=== PATIENT | female | born 1990 | race Caucasian/White ===

== ENCOUNTER 2019-08-17 10:26 | Observation (INO) ==
[2019-08-17 13:18] LABS: ABS Eosinophils 0.2 10^3/ul (0-0.6); ABS Lymphocytes 1.6 10^3/ul (1.0-4.8); ABS Monocytes 0.7 10^3/ul (0-0.8); Eosinophil % 1.9 %; Hematocrit 36 % (35-47); Hemoglobin 12.2 g/dL (12.0-16.0); Mean Corpuscular HGB Conc 34 g/dL (31-36); Mean Corpuscular Hemoglobin 29 pg (27-31); Mean Corpuscular Volume 86 fL (80-97); Mean Platelet Volume 8.4 fL (7.4-10.4); Platelet Count 335 10^3/uL (150-450); Red Cell Distribution Width 13 % (10-15)
[2019-08-17 13:31] LABS: Activated Partial Thrombo Time 27.9 seconds (26.0-38.0); INR 1.1 (0.82-1.09)
[2019-08-17 13:38] LABS: ALT 15 U/L (7-52); AST 14 U/L (13-39); Albumin 3.7 g/dL (3.2-5.2); Alkaline Phosphatase 98 U/L (34-104); Anion Gap 9 mmol/L (2-11); Blood Urea Nitrogen 11 mg/dL (6-24); C Reactive Protein 188.76 mg/L (<8.01); CO2 Carbon Dioxide 24 mmol/L (22-32); Calcium 9.1 mg/dL (8.6-10.3); Chloride 102 mmol/L (101-111); Creatine Kinase 36 U/L (10-223); EGFR African American 147.7 (>60); EGFR Non-African American 122.1 (>60); Globulin 3.7 g/dL (2-4); Glucose 97 mg/dL (70-100); Potassium 3.2 mmol/L (3.5-5.0); Sodium 135 mmol/L (135-145); Total Protein 7.4 g/dL (6.4-8.9)
[2019-08-17 13:39] LABS: CKMB ng/mL 8.9 ng/mL (0.6-6.3)
[2019-08-17 13:42] LABS: HCG Pregnancy < 0.60 mIU/mL
[2019-08-17 13:53] LABS: Troponin I 0.16 ng/mL (<0.03)
[2019-08-17] MEDS ORDERED: Iohexol 350 (CONTRAST) 500 ML MDV IV ONE ×3 (14:08→18:24)
[2019-08-17 15:09] LABS: Urine Appearance Cloudy; Urine Bilirubin Negative (Negative); Urine Blood Negative (Negative); Urine Color Amber; Urine Glucose Negative (Negative); Urine Ketones 2+ (Negative); Urine Nitrite Negative (Negative); Urine Protein Negative (Negative); Urine Specific Gravity 1.028 (1.010-1.030); Urine Urobilinogen Positive (Negative)
[2019-08-17 15:14] LABS: Urine Bacteria Absent (Absent); Urine Red Blood Cell Absent (Absent); Urine Squamous Epithelial Cell Present (Absent); Urine White Blood Cell 1+(6-10/hpf) (Absent)
[2019-08-17] MEDS ORDERED: Perflutren Lipid Microsphere 3 ML VIAL ONE (16:20)
[2019-08-17] MEDS ORDERED: Potassium Chlor 20 meq TAB.ER PO ONE (17:13)
[2019-08-17 18:04] LABS: Troponin I 0.19 ng/mL (<0.03)
[2019-08-17 18:28] LABS: Rheumatoid Factor < 10 IU/mL (<15)
[2019-08-17 19:36] LABS: Erythrocyte Sed Rate 66 mm/Hr (0-19)
[2019-08-17] MEDS: Heparin 5000 UNITS/ML VIAL(*) 1 ml vial SUBCUT SCH (21:22)
[2019-08-17 21:44] LABS: Troponin I 0.17 ng/mL (<0.03)
[2019-08-18 00:12] LABS: Troponin I 0.14 ng/mL (<0.03)
[2019-08-18] MEDS: Heparin 5000 UNITS/ML VIAL(*) 1 ml vial SUBCUT SCH ×3 (05:37→22:30)
[2019-08-18 07:46] LABS: ABS Eosinophils 0.4 10^3/ul (0-0.6); ABS Lymphocytes 1.4 10^3/ul (1.0-4.8); ABS Monocytes 0.6 10^3/ul (0-0.8); Eosinophil % 4.4 %; Hematocrit 36 % (35-47); Hemoglobin 12.3 g/dL (12.0-16.0); Lymphocyte % 15.3 %; Mean Corpuscular HGB Conc 34 g/dL (31-36); Mean Corpuscular Hemoglobin 30 pg (27-31); Mean Corpuscular Volume 86 fL (80-97); Mean Platelet Volume 8.7 fL (7.4-10.4); Platelet Count 304 10^3/uL (150-450); Red Blood Count 4.15 10^6 /uL (3.70-4.87); Red Cell Distribution Width 13 % (10-15); White Blood Count 9.3 10^3/uL (3.5-10.8)
[2019-08-18 07:55] LABS: C Reactive Protein 203.76 mg/L (<8.01); Calcium 8.7 mg/dL (8.6-10.3); EGFR African American 175.3 (>60); EGFR Non-African American 144.9 (>60); Potassium 3.8 mmol/L (3.5-5.0)
[2019-08-18] MEDS ORDERED: Midazolam 2 mg/2 ml VIAL 1 mg/ml 2 ml VIAL (2 mg) IV SLOW PU ONE (18:00)
[2019-08-18] MEDS ORDERED: Lactated Ringers 1000 ml BAG 1,000 ML IV ONE (18:30)
[2019-08-18 19:16] LABS: Body Fluid Source Cerebral Spinal
[2019-08-18 19:28] LABS: CSF Glucose 71 mg/dL (40-70)
[2019-08-19] MEDS: Heparin 5000 UNITS/ML VIAL(*) 1 ml vial SUBCUT SCH (06:17)
[2019-08-19 07:53] VITALS: BP 104/65
[2019-08-22 14:48] LABS: Cytomegalovirus IgG Antibody Negative (Negative)
== END 2019-08-19 11:00 | disposition home or self-care (01) ==
LOC: ED 10:26 → MED 10:26
PROVIDERS: ADMIT Internal Medicine; ATTEND Specialist